=== PATIENT | female | born 1995 | race Caucasian/White ===

== ENCOUNTER 2019-12-30 23:08 | Emergency (ER) | payer BC ==
[~2019-12-30] VITALS: Ht 178 cm; Wt 71.4 kg
[2019-12-30] MEDS ORDERED: LACTATED RINGERS 1,000 ML IV ONE (23:36)
[2019-12-30 23:45] LABS: BILIRUBIN,URINE NEGATIVE (NEGATIVE); CLARITY,URINE CLOUDY; COLOR,URINE YELLOW; GLUCOSE, URINE (UA) NEGATIVE (NEGATIVE); KETONES,URINE NEGATIVE (NEGATIVE); LEUKOCYTE ESTERASE ,URINE 1+ (NEGATIVE); NITRITE,URINE NEGATIVE (NEGATIVE); PH,URINE 6.5 (5-9); PROTEIN,URINE NEGATIVE (NEGATIVE)
[2019-12-30] MEDS ORDERED: ONDANSETRON 4 MG/2 ML (SDV) Z0FRAN IVP ONE (23:45)
[2019-12-30] MEDS ORDERED: ACETAMINOPHEN 500 MG TAB (TYLENOL) ONE (23:52)
[2019-12-30 23:53] LABS: BACTERIA,URINE LARGE /HPF; SQUAMOUS EPITHELIAL CELL,UR 25-50 /HPF
[2019-12-31] MEDS ORDERED: ACETAMINOPHEN 500 MG TAB (TYLENOL) PO ONE
[2019-12-31 00:03] LABS: BASOPHILS % (AUTO) 0 % (0-10); EOSINOPHILS % (AUTO) 0 % (0-10); HEMATOCRIT 36 % (35-52); HEMOGLOBIN 12.9 g/dL (11.5-16.0); LYMPHOCYTES # (AUTO) 1.2 10^3/uL (1.0-4.0); LYMPHOCYTES % (AUTO) 16 % (12-44); MEAN CORPUSCULAR HEMOGLOBIN 31 pg (25-34); MEAN CORPUSCULAR HGB CONC 36 g/dL (32-36); MEAN CORPUSCULAR VOLUME 86 fL (80-99); MEAN PLATELET VOLUME 9.8 fL (9.0-12.2); MONOCYTES # (AUTO) 0.2 10^3/uL (0.0-1.0); MONOCYTES % (AUTO) 3 % (0-12); NEUTROPHILS # (AUTO) 5.7 10^3/uL (1.8-7.8); NEUTROPHILS % (AUTO) 80 % (42-75); PLATELET COUNT 229 10^3/uL (130-400); WHITE BLOOD COUNT 7.1 10^3/uL (4.3-11.0)
[2019-12-31 00:16] LABS: ALBUMIN 4.5 GM/DL (3.2-4.5); POTASSIUM 3.5 MMOL/L (3.6-5.0)
[2019-12-31 00:18] LABS: CALCIUM 9.4 MG/DL (8.5-10.1)
[2019-12-31 00:19] LABS: TOTAL PROTEIN 7.1 GM/DL (6.4-8.2)
[2019-12-31 00:20] LABS: BILIRUBIN,TOTAL 0.9 MG/DL (0.1-1.0)
[2019-12-31 00:22] LABS: CREATININE SERUM 1.13 MG/DL (0.60-1.30)
[2019-12-31] MEDS ORDERED: RX-OSELTAMIVIR 75 MG (TAMIFLU) BOX OF 10 PO STA (00:23)
[2019-12-31] MEDS ORDERED: cefTRIAXone FOR IV USE 1,000 MG in WATER (STERILE) FOR INJECTION 10 ML IV ONE (00:30)
[2019-12-31] MEDS ORDERED: CEPH-507 PO (00:34)
[2019-12-31] MEDS ORDERED: ONDA4TAB11 SL (00:34)
--- NOTE | 2019-12-31 00:34 | ED General ---
General Chief Complaint: Psych/Social Disorder Stated Complaint: HAD SHOTS TODAY NOW HAVING RXN Nursing Triage Note: C/O FEELING "COLD" X 30 MIN REPORTS RECIEVING FLU VACCINE TODAY. Nursing Sepsis Screen: No Definite Risk Source of Information: Patient Exam Limitations: No Limitations History of Present Illness Date Seen by Provider: Dec 30, 2019 Time Seen by Provider: 23:30 Initial Comments This 24-year-old young lady presents to the emergency room with complaints of chills and rigors that started within the past few hours. She also appears short of breath or is hyperventilating. She seems very anxious. She is afebrile but tachycardic. She received her influenza and meningitis vaccines today. She is a [employer] student and works at [employer] which could be considered COVID-19 risk factors. Allergies and Home Medications Allergies Coded Allergies: No Known Drug Allergies (Unverified , 12/30/19) Home Medications Cephalexin 500 Mg Capsule, 500 MG PO TID Prescribed by: LUISA ANDERSON on 12/31/19 0034 Nitrofurantoin Monohyd/M-Cryst 100 Mg Capsule, 1 TAB PO BID Prescribed by: LUISA ANDERSON on 12/31/19 0607 Ondansetron 4 Mg Tab.rapdis, 4 MG SL Q4H PRN for NAUSEA/VOMITING Prescribed by: LUISA ANDERSON on 12/31/19 003 Patient Home Medication List Home Medication List Reviewed: Yes Review of Systems Review of Systems Constitutional: see HPI, chills, weakness EENTM: no symptoms reported Respiratory: see HPI Cardiovascular: see HPI Gastrointestinal: nausea Genitourinary: no symptoms reported : No Musculoskeletal: muscle cramps Skin: no symptoms reported Psychiatric/Neurological: Anxiety Hematologic/Lymphatic: No Symptoms Reported Immunological/Allergic: no symptoms reported Past Ygjxzvq-Ozhkql-Nlxtet Hx Past Med/Social Hx: Reviewed Nursing Past Med/Soc Hx Patient Social History Alcohol Use: Denies Use Recreational Drug Use: No Smoking Status: Never a Smoker 2nd Hand Smoke Exposure: No Recent Foreign Travel: No Contact w/Someone Who Travel: No Recent Infectious Disease Expo: No Recent Hopitalizations: No Immunizations Up To Date Tetanus Booster (TDap): Less than 5yrs Date of Influenza Vaccine: Dec 30, 2019 Seasonal Allergies Seasonal Allergies: No Past Medical History Surgeries: Yes Tonsillectomy Respiratory: No Cardiac: No Neurological: No : No Genitourinary: No Gastrointestinal: No Musculoskeletal: No Endocrine: No HEENT: No Cancer: No Psychosocial: Yes Anxiety Integumentary: No Blood Disorders: No Adverse Reaction/Blood Tranf: No Physical Exam Vital Signs Vital Signs - First Documented 12/30/19 23:30 Temp 37.0 Pulse 126 Resp 24 B/P (MAP) 146/67 (93) Pulse Ox 100 O2 Delivery Room Air Capillary Refill : Less Than 3 Seconds Height, Weight, BMI Height: '" Weight: lbs. oz. kg; 22.00 BMI Method: General Appearance: WD/WN, Anxious, Thin HEENT: PERRL/EOMI, TMs Normal, Normal ENT Inspection, Pharynx Normal Neck: Normal Inspection Respiratory: Lungs Clear, Normal Breath Sounds, Other (tachypnea/hyperventilating) Cardiovascular: No Edema, No Murmur, Tachycardia Gastrointestinal: Normal Bowel Sounds, Non Tender, Soft Extremity: Normal Inspection, Non Tender, No Pedal Edema Neurologic/Psychiatric: Alert, Oriented x3, No Motor/Sensory Deficits, electric organ checker II- XII Norm as Tested, Other (anxious) Skin: Normal Color, Warm/Dry Progress/Results/Core Measures Suspected Sepsis Recent Fever Within 48 Hours: No Infection Criteria Present: None New/Unexplained Altered Menta: No Sepsis Screen: No Definite Risk SIRS Temperature: Pulse: 126 Respiratory Rate: 24 Laboratory Tests 12/30/19 23:50: White Blood Count 7.1 Blood Pressure 146 /67 Mean: 93 Laboratory Tests 12/30/19 23:50: Creatinine 1.13, Platelet Count 229, Total Bilirubin 0.9 Results/Orders Lab Results Laboratory Tests Test 12/30/19 23:32 12/30/19 23:50 12/31/19 00:35 Range/Units Urine Color YELLOW Urine Clarity CLOUDY Urine pH 6.5 5-9 Urine Specific [place] 1.015 L 1.016-1.022 Urine Protein NEGATIVE NEGATIVE Urine Glucose (UA) NEGATIVE NEGATIVE Urine Ketones NEGATIVE NEGATIVE Urine Nitrite NEGATIVE NEGATIVE Urine Bilirubin NEGATIVE NEGATIVE Urine Urobilinogen 0.2 < = 1.0 MG/DL Urine Leukocyte Esterase 1+ H NEGATIVE Urine RBC (Auto) NEGATIVE NEGATIVE Urine RBC NONE /HPF Urine WBC 5-10 H /HPF Urine Squamous Epithelial Cells 25-50 H /HPF Urine Crystals NONE /LPF Urine Bacteria LARGE H /HPF Urine Casts NONE /LPF Urine Mucus NEGATIVE /LPF Urine Culture Indicated YES White Blood Count 7.1 4.3-11.0 10^3/uL Red Blood Count 4.19 3.80-5.11 10^6/uL Hemoglobin 12.9 11.5-16.0 g/dL Hematocrit 36 35-52 % Mean Corpuscular Volume 86 80-99 fL Mean Corpuscular Hemoglobin 31 25-34 pg Mean Corpuscular Hemoglobin Concent 36 32-36 g/dL Red Cell Distribution Width 12.2 10.0-14.5 % Platelet Count 229 130-400 10^3/uL Mean Platelet Volume 9.8 9.0-12.2 fL Immature Granulocyte % (Auto) 0 % Neutrophils (%) (Auto) 80 H 42-75 % Lymphocytes (%) (Auto) 16 12-44 % Monocytes (%) (Auto) 3 0-12 % Eosinophils (%) (Auto) 0 0-10 % Basophils (%) (Auto) 0 0-10 % Neutrophils # (Auto) 5.7 1.8-7.8 10^3/uL Lymphocytes # (Auto) 1.2 1.0-4.0 10^3/uL Monocytes # (Auto) 0.2 0.0-1.0 10^3/uL Eosinophils # (Auto) 0.0 0.0-0.3 10^3/uL Basophils # (Auto) 0.0 0.0-0.1 10^3/uL Immature Granulocyte # (Auto) 0.0 0.0-0.1 10^3/uL Sodium Level 138 135-145 MMOL/L Potassium Level 3.5 L 3.6-5.0 MMOL/L Chloride Level 105 98-107 MMOL/L Carbon Dioxide Level 20 L 21-32 MMOL/L Anion Gap 13 5-14 MMOL/L Blood Urea Nitrogen 17 7-18 MG/DL Creatinine 1.13 0.60-1.30 MG/DL Estimat Glomerular Filtration Rate 60 BUN/Creatinine Ratio 15 Glucose Level 111 H 70-105 MG/DL Calcium Level 9.4 8.5-10.1 MG/DL Corrected Calcium 9.0 8.5-10.1 MG/DL Total Bilirubin 0.9 0.1-1.0 MG/DL Aspartate Amino Transf (AST/SGOT) 18 5-34 U/L Alanine Aminotransferase (ALT/SGPT) 10 0-55 U/L Alkaline Phosphatase 54 40-136 U/L Lactate Dehydrogenase 167 125-220 U/L C-Reactive Protein High Sensitivity 0.15 0.00-0.50 MG/DL Total Protein 7.1 6.4-8.2 GM/DL Albumin 4.5 3.2-4.5 GM/DL Procalcitonin 0.03 <0.10 NG/ML Serum Test, Qualitative NEGATIVE NEGATIVE Coronavirus 2018 (KATELYN) Negative Negative Micro Results Microbiology 12/30/19 Influenza Types A,B Antigen (STEPHANIE) - Final, Complete My Orders Orders - LUISA KATE MD Covid 19 Inhouse Test (12/30/19 23:36) Cbc With Automated Diff (12/30/19 23:36) Comprehensive Metabolic Panel (12/30/19 23:36) Hs C Reactive Protein (12/30/19 23:36) Hcg,Qualitative Serum (12/30/19 23:36) Procalcitonin (Pct) (12/30/19 23:36) LDH (12/30/19 23:36) Ua Culture If Indicated (12/30/19 23:36) Ed Iv/Invasive Line Start (12/30/19 23:36) Lactated Ringers (Lr 1000 Ml Iv Solution (12/30/19 23:36) Ondansetron Injection (Zofran Injectio (12/30/19 23:45) Influenza A And B Antigens (12/30/19 23:36) Urine Culture (12/30/19 23:32) Acetaminophen Tablet (Tylenol Tablet) (12/31/19 00:00) Acetaminophen Tablet (Tylenol Tablet) (12/30/19 23:52) Coronavirus Sars-Cov-2 So 2018 (12/31/19 00:21) Rx-Oseltamivir Caps (Rx-Tamiflu Caps) (12/31/19 00:23) Ceftriaxone For Iv Use (Rocephin For I (12/31/19 00:30) Medications Given in ED Vital Signs/I&O Capillary Refill : Less Than 3 Seconds Blood Pressure Mean: 93 Progress Note : Progress Note Nausea was treated with Zofran. Chills were treated with Tylenol. A liter of LR was infused. Patient was feeling much better after these interventions. Influenza swab was positive for influenza B. Patient was started on the take- home pack of Tamiflu. Rapid COVID-19 test was negative. Backup test is pending. Quarantine precautions were reviewed with the patient. Urinary tract infection was identified by urinalysis. Rocephin was given for initial treatment. Keflex was initially prescribed and patient requested that this be changed to Macrobid. Pharmacy was called to cancel the Keflex prescription. Departure Impression Primary Impression: Influenza B Additional Impressions: Urinary tract infection Qualified Codes: N39.0 - Urinary tract infection, site not specified Person under investigation for COVID-19 Disposition: HOME, SELF-CARE Condition: Improved Departure-Patient Inst. Decision time for Depature: 00:29 Referrals: ERIC BOUCHER MD (PCP/Family) Primary Care Physician Patient Instructions: Flu, Coronavirus Disease 2019 (COVID-19) Overview Add. Discharge Instructions: Although your rapid COVID-19 test was negative, you are still considered a person under investigation for COVID-19 until the backup test results. Staying quarantine until the results are known. For pain and fever you may take Tylenol (acetaminophen) up to 1000 mg every 6 hours as needed and/or ibuprofen up to 600 mg every 6 hours as needed. Uses Zofran (ondansetron) as prescribed for nausea and vomiting. Complete the entire course of your antibiotics for urinary tract infection and your Tamiflu. Do not skip any doses or stop before the prescribed duration. Stay home from work, school, etc. until fever and significant symptoms have resolved for at least 72 hours. Return to care. Worsening symptoms despite following these instructions. All discharge instructions reviewed with patient and/or family. Voiced understanding. Scripts Nitrofurantoin Monohyd/M-Cryst (Macrobid 100 mg Capsule) 100 Mg Capsule 1 TAB PO BID, #14 CAP Prov: LUISA KATE MD 12/31/19 Ondansetron (Ondansetron Odt) 4 Mg Tab.rapdis 4 MG SL Q4H PRN for NAUSEA/VOMITING, #10 TAB Prov: LUISA KATE MD 12/31/19 Cephalexin (Keflex) 500 Mg Capsule 500 MG PO TID, #20 CAP Prov: LUISA KATE MD 12/31/19 Work/School Note: Work Release Form Date Seen in the Emergency Department: Dec 31, 2019 Return to Work: Jan 04, 2020 Other Restrictions Listed Below: If COVID negative, return when no significant symptoms or fever for 72 hr Restrictions: If COVID positive, follow health department guidelines. LUISA KATE MD Dec 31, 2019 00:34
[2019-12-31 00:43] VITALS: BP 129/86
[2019-12-31] MEDS ORDERED: NITR-65 PO (06:07)
== END 2019-12-31 00:43 | disposition home or self-care (01) ==
LOC: EDUNIT# 23:08 → ER 23:11
DX: J10.1 Influenza due to other identified influenza virus with other respiratory manifestations (principal); N39.0 Urinary tract infection, site not specified; Z20.828 Contact with and (suspected) exposure to other viral communicable diseases
CPT/HCPCS: 80053; 81000; 83615; 84145; 84703 ×2; 85025; 86141; 87077; 87088; 87804; 99284; U0002 ×2; 36415; 87635